=== PATIENT | female | born 1980 | race Caucasian/White ===

== ENCOUNTER 2025-05-29 07:45 | Day surgery (SDC) | payer BC, SELFPAY ==
[2025-05-28 11:58] LABS: HCG Qualitative,Urine Negative
[2025-05-28 14:25] VITALS: BMI 41.5
[2025-05-29] VITALS (9 sets, daily range): BP systolic 129–165; BP diastolic 88–117; PULSE 55–78; RESP 14–20; TEMP 36.4–36.9; O2SAT 96–100; BMI 41.9
[2025-05-29] MEDS: SODIUM CHLORIDE 0.9% 500 ML 500 ML 20 ML IV (09:08)
[2025-05-29] MEDS: fentaNYL CIT INJ 50 mCg/ML AMP 2ML (ASD USE ONLY) IVP (09:11)
[2025-05-29] MEDS: MIDAZOLAM INJ 1 MG/ML VIAL 2 ML (ASD USE ONLY) 2 MG IVP (09:11)
== END 2025-05-29 09:55 | disposition home or self-care (01) ==
PROVIDERS: PCP Family Medicine; Referring Provider Specialist; Visit Provider Specialist
PROC: 0DBE8ZX Excision of Large Intestine, Via Natural or Artificial Opening Endoscopic, Diagnostic (ICD-10-PCS; CPT 45380; principal; 2025-05-29 09:00)
DX: Z12.11 Encounter for screening for malignant neoplasm of colon (principal); K64.9 Unspecified hemorrhoids; K57.30 Diverticulosis of large intestine without perforation or abscess without bleeding
CPT/HCPCS: 45378; 81025; J1200; J2250; J3010; J7999